=== PATIENT | male | born 1940 | race Caucasian/White ===

== ENCOUNTER → 2017-06-27 | Outpatient (CLI) | payer MEDICARE ==
[~2017-06-27] MED LIST: ASCO250CH PO; ASPI325 PO; ASPI81CH PO; CLOP75 PO; ESOM20 PO; FISH1000 PO; GLUC500 PO; HYDACE5 PO; LISHYD2012 PO; METF500 PO; METO100ER PO; MULVITMIND PO; PSYL5.85P PO; Percocet 5-3251 EACH PO; RXHYD5325 PO; SIMV10 PO; UBID10 PO; WARF2.5 PO
[2017-06-28 13:51] LABS: Stool Occult Bld Immuno 1 Negative (NEGATIVE); Stool Occult Bld Immuno 2 Negative (NEGATIVE)
== END | disposition home or self-care (01) ==
LOC: LAB 18:09 → LAB SHORT 18:09
PROVIDERS: Internal Medicine Gastroenterology
DX: K57.30 Diverticulosis of large intestine without perforation or abscess without bleeding (principal); Z86.010 Personal history of colon polyps
CPT/HCPCS: G0328

== ENCOUNTER 2017-07-03 11:33 | Day surgery (SDC) | payer MEDICARE ==
[~2017-07-03] VITALS: Ht 177.8 cm; Wt 81.8 kg
[2017-07-03] MEDS ORDERED: XARELTO20 MG (12:28)
== END 2017-07-03 15:30 | disposition home or self-care (01) ==
LOC: ORSCSDS 11:33
DX: K22.70 Barrett's esophagus without dysplasia (principal); Z86.010 Personal history of colon polyps; D12.0 Benign neoplasm of cecum; D12.3 Benign neoplasm of transverse colon; D12.4 Benign neoplasm of descending colon; D12.5 Benign neoplasm of sigmoid colon; K57.30 Diverticulosis of large intestine without perforation or abscess without bleeding; I48.91 Unspecified atrial fibrillation; Z87.891 Personal history of nicotine dependence; Z79.899 Other long term (current) drug therapy; Z79.82 Long term (current) use of aspirin
CPT/HCPCS: 88305; J1980; J3010; J7040; J7120

== ENCOUNTER 2018-04-01 04:48 | Emergency (ER) | payer MEDICARE ==
[~2018-04-01] VITALS: Ht 177.8 cm; Wt 83.9 kg
[~2018-04-01 04:48] MED LIST changes: +XARELTO20 MG
[2018-04-01] MEDS ORDERED: Roxicodone5 MG PO (05:54)
== END 2018-04-01 08:29 | disposition home or self-care (01) ==
LOC: ER 04:48
DX: S42.034A Nondisplaced fracture of lateral end of right clavicle, initial encounter for closed fracture (principal); I10 Essential (primary) hypertension; W18.30XA Fall on same level, unspecified, initial encounter; Z79.899 Other long term (current) drug therapy; Z79.82 Long term (current) use of aspirin; E11.9 Type 2 diabetes mellitus without complications; E78.00 Pure hypercholesterolemia, unspecified; I48.91 Unspecified atrial fibrillation
CPT/HCPCS: 72100; 73030; 99283-25

== ENCOUNTER 2018-10-05 12:04 | Emergency (ER) | payer MEDICARE ==
[~2018-10-05] VITALS: Ht 182.9 cm; Wt 74.8 kg
[~2018-10-05 12:04] MED LIST changes: +Roxicodone5 MG PO
[2018-10-05] MEDS ORDERED: PROLIA60 MG/1 ML SC (12:14)
[2018-10-05] MEDS ORDERED: WARF2.5 PO (12:14)
[2018-10-05] MEDS ORDERED: Aspirin EC81 MG PO (12:15)
[2018-10-05] MEDS ORDERED: LISI20 PO (12:15)
[2018-10-05] MEDS ORDERED: WARF1 PO (12:15)
[2018-10-05] MEDS ORDERED: TAMS.4ER PO (12:15)
[2018-10-05] MEDS ORDERED: OMEPRAZOLE20 MG PO (12:15)
[2018-10-05] MEDS ORDERED: Zocor20 MG PO (12:15)
[2018-10-05] MEDS ORDERED: [UNRECOGNIZED DRUG - OTHER] (12:16)
[2018-10-05] MEDS ORDERED: VITAMIN D31000 UNI2 PO (12:16)
[2018-10-05] MEDS ORDERED: LEUPROLIDE (12:16)
[2018-10-05] MEDS ORDERED: Metamucil0.52 GM PO (12:16)
[2018-10-05] MEDS ORDERED: UBID10 PO (12:17)
[2018-10-05] MEDS ORDERED: THERA1 EACH (12:17)
[2018-10-05] MEDS ORDERED: Glucosamine Ch1 EAC3 PO (12:17)
[2018-10-05] MEDS ORDERED: FISH OIL 1,001000 MG PO (12:17)
== END 2018-10-05 14:06 | disposition home or self-care (01) ==
LOC: ER 12:04
DX: S00.83XA Contusion of other part of head, initial encounter (principal); E11.9 Type 2 diabetes mellitus without complications; I10 Essential (primary) hypertension; I48.91 Unspecified atrial fibrillation; E78.00 Pure hypercholesterolemia, unspecified; Z79.82 Long term (current) use of aspirin; Z79.899 Other long term (current) drug therapy; W18.30XA Fall on same level, unspecified, initial encounter
CPT/HCPCS: 70450; 99284-25

== ENCOUNTER 2018-12-13 15:39 | Emergency (ER) | payer MEDICARE ==
[~2018-12-13] VITALS: Ht 177.8 cm; Wt 79.4 kg
[~2018-12-13 15:39] MED LIST changes: +Aspirin EC81 MG PO; +FISH OIL 1,001000 MG PO; +Glucosamine Ch1 EAC3 PO; +LEUPROLIDE; +LISI20 PO; +Metamucil0.52 GM PO; +OMEPRAZOLE20 MG PO; +PROLIA60 MG/1 ML SC; +TAMS.4ER PO; +THERA1 EACH; +VITAMIN D31000 UNI2 PO; +WARF1 PO; +Zocor20 MG PO; +[UNRECOGNIZED DRUG - OTHER]
[2018-12-13 16:50] LABS: International Normalized Ratio 2.37; Prothrombin Time Results 23.2 Sec (9.7-11.5)
== END 2018-12-13 17:30 | disposition home or self-care (01) ==
LOC: ER 15:39
PROVIDERS: Emergency Medicine
DX: S00.83XA Contusion of other part of head, initial encounter (principal); E11.9 Type 2 diabetes mellitus without complications; I10 Essential (primary) hypertension; I48.91 Unspecified atrial fibrillation; E78.00 Pure hypercholesterolemia, unspecified; Z88.1 Allergy status to other antibiotic agents; Z88.5 Allergy status to narcotic agent; Z88.8 Allergy status to other drugs, medicaments and biological substances; Z79.899 Other long term (current) drug therapy; Z79.01 Long term (current) use of anticoagulants; Z79.82 Long term (current) use of aspirin; W01.10XA Fall on same level from slipping, tripping and stumbling with subsequent striking against unspecified object, initial encounter
CPT/HCPCS: 70450; 72125; 85610; 99284-25

== ENCOUNTER 2018-12-14 03:26 | Emergency (ER) | payer MEDICARE ==
[~2018-12-14] VITALS: Ht 180.3 cm; Wt 79.4 kg
[2018-12-14 04:10] LABS: BASOPHILS ABSOLUTE AUTO 0.02 K/mm3 (0.00-0.23); BASOPHILS PERCENT AUTO 0 % (0-2); EOSINOPHILS ABSOLUTE AUTO 0.03 K/mm3 (0.00-0.68); EOSINOPHILS PERCENT AUTO 0 % (0-6); Hematocrit 29.7 % (37.0-53.0); Hemoglobin 9.6 g/dL (13.5-17.5); IMMATURE GRAN ABSOLUTE AUTO 0.04 K/mm3 (0.00-0.10); IMMATURE GRAN PERCENT AUTO 0 % (0-1); LYMPHOCYTES ABSOLUTE AUTO 0.63 K/mm3 (0.84-5.20); LYMPHOCYTES PERCENT AUTO 6 % (21-46); MONOCYTES ABSOLUTE AUTO 0.81 K/mm3 (0.16-1.47); MONOCYTES PERCENT AUTO 8 % (4-13); Mean Corpuscular HGB 29.6 pg (26.0-34.0); Mean Corpuscular HGB Conc 32.3 g/dL (31.5-36.5); Mean Corpuscular Volume 92 fL (80-100); Mean Platelet Volume 9.3 fL (9.1-12.4); NEUTROPHILS ABSOLUTE AUTO 8.99 K/mm3 (1.96-9.15); NEUTROPHILS PERCENT AUTO 85 % (41-73); Platelet Count 261 K/mm3 (150-400); RDW Coefficient Variation 12.9 % (11.7-14.2); RDW Standard Deviation 43.2 fL (35.1-46.3); Red Blood Cell Count 3.24 M/mm3 (4.30-5.90); White Blood Cell Count 10.52 K/mm3 (4.00-11.30)
[2018-12-14 04:23] LABS: Alanine Aminotransfer (ALT/SGP 101 U/L (12-78); Albumin, Blood 3.6 g/dL (3.4-5.0); Alk Phos 102 U/L (50-136); Anion Gap 8 mmol/L (6-16); Aspartate Aminotrans (AST/SGOT 180 U/L (12-37); Bilirubin, Total 1.2 mg/dL (0.1-1.0); Blood Urea Nitrogen 17 mg/dL (8-24); Bun/Creatinine Ratio 28.9 (12.0-20.0); CO2, Blood 25 mmol/L (21-32); Calcium, Blood 8.3 mg/dL (8.5-10.1); Chloride, Blood 97 mmol/L (98-108); Creatinine, Blood 0.59 mg/dL (0.60-1.20); Globulin, Blood 3.5 g/dL (2.2-4.0); Glomerular Filtration Rate >60 (60-); Glucose, Blood 174 mg/dL (70-99); Potassium, Blood 4.1 mmol/L (3.5-5.5); Sodium, Blood 130 mmol/L (136-145); Total Protein, Blood 7.1 g/dL (6.4-8.2)
[2018-12-14 04:24] LABS: International Normalized Ratio 1.88
[2018-12-14 04:27] LABS: Prothrombin Time Results 18.8 Sec (9.7-11.5)
== END 2018-12-14 07:55 | disposition short-term general hospital (02) ==
LOC: ER 03:26
PROVIDERS: Emergency Medicine
DX: S06.309A Unspecified focal traumatic brain injury with loss of consciousness of unspecified duration, initial encounter (principal); S36.113A Laceration of liver, unspecified degree, initial encounter; W18.30XA Fall on same level, unspecified, initial encounter; Z88.1 Allergy status to other antibiotic agents; Z88.5 Allergy status to narcotic agent; Z88.8 Allergy status to other drugs, medicaments and biological substances; Z79.899 Other long term (current) drug therapy; Z79.01 Long term (current) use of anticoagulants; Z79.82 Long term (current) use of aspirin; E11.9 Type 2 diabetes mellitus without complications; I48.91 Unspecified atrial fibrillation; E78.00 Pure hypercholesterolemia, unspecified
CPT/HCPCS: 36415; 70450; 71260; 72125; 74177; 80053; 85025; 85610; 93005; 93010; 96365-59; 96375-59; 96376-59; 99285-25; J1170; J3010; J3430; Q9967

== ENCOUNTER 2020-05-17 16:59 | Emergency (ER) | payer MEDICARE ==
[~2020-05-17] VITALS: Ht 182.9 cm; Wt 69.4 kg
[2020-05-17] MEDS ORDERED: Vitamin D2000 UNIT PO (18:18)
[2020-05-17] MEDS ORDERED: GLUCHON (18:19)
[2020-05-17] MEDS ORDERED: ZESTRIL40 M1 PO (18:19)
[2020-05-17] MEDS ORDERED: ZOCOR20 MG PO (18:19)
[2020-05-17] MEDS ORDERED: XARELTO20 MG PO (18:19)
[2020-05-17] MEDS ORDERED: CALCIUM 600 +1 EA11 (18:19)
[2020-05-17] MEDS ORDERED: OMEP20ER PO (18:20)
[2020-05-17] MEDS ORDERED: FISH OIL-VIT D1 EACH (18:20)
[2020-05-17] MEDS ORDERED: COENZYME Q-1050 MG PO (18:20)
[2020-05-17 18:53] LABS: BASOPHILS ABSOLUTE AUTO 0.04 K/mm3 (0.00-0.23); BASOPHILS PERCENT AUTO 0 % (0-2); EOSINOPHILS ABSOLUTE AUTO 0.03 K/mm3 (0.00-0.68); EOSINOPHILS PERCENT AUTO 0 % (0-6); Hematocrit 39.1 % (37.0-53.0); Hemoglobin 13.3 g/dL (13.5-17.5); IMMATURE GRAN ABSOLUTE AUTO 0.07 K/mm3 (0.00-0.10); IMMATURE GRAN PERCENT AUTO 1 % (0-1); LYMPHOCYTES ABSOLUTE AUTO 1.01 K/mm3 (0.84-5.20); LYMPHOCYTES PERCENT AUTO 8 % (21-46); MONOCYTES ABSOLUTE AUTO 1.01 K/mm3 (0.16-1.47); MONOCYTES PERCENT AUTO 8 % (4-13); Mean Corpuscular HGB 32.1 pg (26.0-34.0); Mean Corpuscular Volume 94 fL (80-100); NEUTROPHILS ABSOLUTE AUTO 10.71 K/mm3 (1.96-9.15); NEUTROPHILS PERCENT AUTO 83 % (41-73); Platelet Count 230 K/mm3 (150-400); RDW Coefficient Variation 12.4 % (11.7-14.2); RDW Standard Deviation 43.3 fL (35.1-46.3); Red Blood Cell Count 4.14 M/mm3 (4.30-5.90); White Blood Cell Count 12.87 K/mm3 (4.00-11.30)
[2020-05-17 19:10] LABS: International Normalized Ratio 1.02; Prothrombin Time Results 10.9 Sec (9.7-11.5)
[2020-05-17 19:14] LABS: Alanine Aminotransfer (ALT/SGP 24 U/L (12-78); Albumin, Blood 3.9 g/dL (3.4-5.0); Alk Phos 131 U/L (50-136); Anion Gap 8 mmol/L (6-16); Aspartate Aminotrans (AST/SGOT 30 U/L (12-37); Bilirubin, Total 1.2 mg/dL (0.1-1.0); Blood Urea Nitrogen 19 mg/dL (8-24); Bun/Creatinine Ratio 31.9 (12.0-20.0); CO2, Blood 26 mmol/L (21-32); Calcium, Blood 9.2 mg/dL (8.5-10.1); Chloride, Blood 98 mmol/L (98-108); Globulin, Blood 3.9 g/dL (2.2-4.0); Glomerular Filtration Rate >60 (60-); Glucose, Blood 108 mg/dL (70-99); Potassium, Blood 4.3 mmol/L (3.5-5.5); Sodium, Blood 132 mmol/L (136-145); Total Protein, Blood 7.8 g/dL (6.4-8.2)
== END 2020-05-17 20:09 | disposition short-term general hospital (02) ==
LOC: ER 16:59
PROVIDERS: Emergency Medicine
DX: S12.110A Anterior displaced Type II dens fracture, initial encounter for closed fracture (principal); S12.000A Unspecified displaced fracture of first cervical vertebra, initial encounter for closed fracture; S22.010A Wedge compression fracture of first thoracic vertebra, initial encounter for closed fracture; S09.90XA Unspecified injury of head, initial encounter; E11.9 Type 2 diabetes mellitus without complications; I48.91 Unspecified atrial fibrillation; Z79.899 Other long term (current) drug therapy; W01.10XA Fall on same level from slipping, tripping and stumbling with subsequent striking against unspecified object, initial encounter; Y92.002 Bathroom of unspecified non-institutional (private) residence as the place of occurrence of the external cause; Z88.1 Allergy status to other antibiotic agents; Z88.5 Allergy status to narcotic agent; Z88.8 Allergy status to other drugs, medicaments and biological substances; Z79.82 Long term (current) use of aspirin
CPT/HCPCS: 36415; 70450; 72125; 80053; 85025; 85610; 85730; 96374; 99284-25; A9270; J3010; L0160

== ENCOUNTER 2021-05-06 09:34 | Inpatient (IN) | payer MEDICARE ==
[~2021-05-06] VITALS: Ht 180.3 cm; Wt 86.3 kg
[~2021-05-06 09:34] MED LIST changes: +CALCIUM 600 +1 EA11; +COENZYME Q-1030 MG PO; +FISH OIL-VIT D1 EACH; +GLUCHON; +OMEP20ER PO; +Vitamin D2000 UNIT PO; +XARELTO20 MG PO; +ZESTRIL40 M1 PO; +ZOCOR20 MG PO
[2021-05-06] MEDS ORDERED: PLAVIX75 MG PO (10:30)
[2021-05-06] MEDS ORDERED: LIPITOR80 MG PO (10:30)
[2021-05-06] MEDS ORDERED: Hair, Skin & N1 EACH PO (10:35)
[2021-05-06] MEDS ORDERED: METAMUCIL POWD798 GM PO (10:35)
--- NOTE | 2021-05-06 16:19 | NUR ---
PT VERBALIZED UNDERSTANDING OF D/C INSTRUCTIONS, PAPERWORK PROVIDED IN FOLDER. RIGHT GROIN SITE REMAINS SOFT WITH NO BLEEDING OR OOZING. DRESSING REMAINS C/D/I. RIGHT WRIST PUNCTURE WOUNDS OPEN TO AIR, NO BLEEDING. PT IV REMOVED FROM LAC WITH CATH INTACT, PRESSURE DRESSING APPLIED. DENIES CP OR SOB. S/O ARRIVES TO DRIVE PT HOME. ALL PERSONAL BELONGINGS SENT WITH PATIENT. ENCOURAGED TO FOLLOW UP WITH PROVIDER SCHEDULED. NO ACUTE DISTRESS NOTED AT TIME OF DISPO.
[2021-05-06 16:26] LABS: Source, Urine Foley catheter
[2021-05-06 16:28] LABS: Bilirubin, Urine Neg (Neg); Blood, Urine 1+ (Neg); Glucose Qualitative, Urine Neg (Neg); Ketones, Urine Neg (Neg); Leukocyte Esterase, Urine Neg (Neg); Nitrite, Urine Neg (Neg); Protein, Urine Neg (Neg); Urobilinogen, Urine NORM (Normal); pH, Urine 6.5 (5.0-8.0)
[2021-05-06 16:37] LABS: Appearance, Urine Clear (Clear); Color, Urine Pale Yellow (P-Yellow)
[2021-05-06 16:38] LABS: Bacteria Rare /hpf; Squamous Epithelial Cells Rare /hpf (Few); White Blood Cells, Urine 0-2 /hpf (0-5)
[2021-05-06 19:23] LABS: Hematocrit 21.5 % (37.0-53.0); Hemoglobin 6.8 g/dL (13.5-17.5)
[2021-05-06 20:52] LABS: Hematocrit 34.3 % (37.0-53.0); Hemoglobin 10.6 g/dL (13.5-17.5)
[2021-05-06 22:18] LABS: Hematocrit 33.8 % (37.0-53.0); Hemoglobin 10.6 g/dL (13.5-17.5)
[2021-05-07 03:12] LABS: BASOPHILS ABSOLUTE AUTO 0.03 K/mm3 (0.00-0.23); BASOPHILS PERCENT AUTO 0 % (0-2); EOSINOPHILS PERCENT AUTO 0 % (0-6); Hematocrit 30.8 % (37.0-53.0); Hemoglobin 9.7 g/dL (13.5-17.5); IMMATURE GRAN ABSOLUTE AUTO 0.06 K/mm3 (0.00-0.10); IMMATURE GRAN PERCENT AUTO 0 % (0-1); LYMPHOCYTES ABSOLUTE AUTO 0.42 K/mm3 (0.84-5.20); LYMPHOCYTES PERCENT AUTO 2 % (21-46); MONOCYTES PERCENT AUTO 3 % (4-13); Mean Corpuscular HGB 30.7 pg (26.0-34.0); Mean Corpuscular HGB Conc 31.5 g/dL (31.5-36.5); Mean Corpuscular Volume 98 fL (80-100); Mean Platelet Volume 10.2 fL (9.1-12.4); NEUTROPHILS ABSOLUTE AUTO 17.36 K/mm3 (1.96-9.15); NEUTROPHILS PERCENT AUTO 94 % (41-73); Platelet Count 164 K/mm3 (150-400); RDW Coefficient Variation 15.9 % (11.7-14.2); RDW Standard Deviation 57.3 fL (35.1-46.3); Red Blood Cell Count 3.16 M/mm3 (4.30-5.90); White Blood Cell Count 18.47 K/mm3 (4.00-11.30)
[2021-05-07 03:44] LABS: Anion Gap 6 mmol/L (6-16); Blood Urea Nitrogen 17 mg/dL (8-24); Bun/Creatinine Ratio 26.6 (12.0-20.0); CO2, Blood 21 mmol/L (21-32); Calcium, Blood 7.6 mg/dL (8.5-10.1); Chloride, Blood 114 mmol/L (98-108); Creatinine, Blood 0.64 mg/dL (0.60-1.20); Glomerular Filtration Rate >60 (60-); Glucose, Blood 160 mg/dL (70-99); Phosphorus, Blood 4.5 mg/dL (2.5-4.9); Potassium, Blood 4.4 mmol/L (3.5-5.5); Sodium, Blood 141 mmol/L (136-145)
--- NOTE | 2021-05-07 09:00 | NUR ---
AT ASSUMPTION OF CARE PT IS A&OX4. DENIES PAIN. ROOM AIR. R AND LEFT GROIN INSERTION SITES ARE SOFT, FLAT, DRY. L GROIN SITE IS ECCYMOTIC. R PEDAL AND PT PULSES ARE FOUND VIA DOPPLER. L PEDAL AND PT PULSES ARE ABSENT, MD AWARE. L FOOT WARM WITH TOES PALE. A FIB WITH RATE 60-100S. GOMEZ WITH CLEAR MARIANNE URINE. HEPARIN RUNNING AT 15 U/KG/HR
[2021-05-07 09:51] LABS: Hematocrit 31.5 % (37.0-53.0); Hemoglobin 10.1 g/dL (13.5-17.5)
--- NOTE | 2021-05-07 13:34 | NUR ---
HEPARIN PAUSED FOR 1 HOUR PER ORDER, RESTARTED AT 12 U/KG/HR PER ORDER
--- NOTE | 2021-05-07 17:39 | NUR ---
SHIFT SUMMARY REMAINS A&0X4. PLEASANT AND COOPERATIVE. ROOM AIR. LEFT FOOT W/ NUMBNESS BUT MOVEMENT PRESENT, TOES PALE. INTERMITTENTLY WARM AND COOL. ABSENT L PEDAL AND PT PULSE. RIGHT FOOT WARM WITH PT AND PEDAL PULSE FOUND BY DOPPLER. PATRICIA REMOVED THIS AFTERNOON. A FIB W/ CONTROLLED RATE, SEE VITALS. HEPARIN RUNNING AT 12 U/KG/HR
--- NOTE | 2021-05-07 19:05 | NUR ---
Assumed care. Report received from shobha HARRIS. Pt resting in bed at this time, on RA. Alert and oriented, call light within reach. IV access in R/ac and R/forearm. Heparin running at 12 units/kg/hr. VS stable, no acute needs at this time. Will continue to monitor.
[2021-05-07 19:38] LABS: Hemoglobin 7.5 g/dL (13.5-17.5)
--- NOTE | 2021-05-07 21:35 | NUR ---
PT TRANSFERRED TO MEDICAL FLOOR. HEPARIN ON STANDBY DURING TIME OF TRANSFER, PHARMACY MANAGING INFUSION. VS STABLE, REPORT GIVEN TO MEDICAL FLOOR RN. SEE SHIFT ASSESSMENT FOR FURTHER DETAILS.
--- NOTE | 2021-05-07 23:48 | NUR ---
RECIEVED CALL FROM [facility]; PATIENT HAD 13 BEAT RUN OF VTACH. TALKED TO CANDACE RAMESH RN. STATED IF PATIENT IS ASYMMPTOMATIC THAN TO NOTIFY MD WHEN ANOTHER RN NEEDS TO CALL HOSPITALIST.
[2021-05-08 03:43] LABS: Hematocrit 20.9 % (37.0-53.0); Hemoglobin 6.7 g/dL (13.5-17.5)
--- NOTE | 2021-05-08 04:41 | NUR ---
SHIFT SUMMARY- PATIENT ARRIVED TO MEDICAL FLOOR, ROOM 333, AT 2102 LAST NIGHT. WEAK AND IN PAIN S/P L ILLIAC RUPTURE AND REPAIR R/T LLE ISCHEMIA. PATIENT NOTED TO BEING EXTREMELY PALE. VITALS STABLE HOWEVER HEMOGLOBIN DROPPED FROM 7.5 TO 6.[address] ARVIZU VIA TELEPHONE AT 0440 AND NEW ORDERS GIVEN TO ADMINISTER I UNIT PRBCs. WILL ADMINISTER ONCE BLOOD RECIEVED FROM BB.
--- NOTE | 2021-05-08 06:22 | NUR ---
UNIT OF BLOOD STARTED TO TRANSFUSE. WILL MONITOR PATIENT PER PROTOCOL.
[2021-05-08 10:30] LABS: Hematocrit 23.7 % (37.0-53.0); Hemoglobin 7.6 g/dL (13.5-17.5)
--- NOTE | 2021-05-08 11:07 | NUR ---
HEPARIN DRIP TO REMAIN SAME PER PHA
--- NOTE | 2021-05-08 13:18 | NUR ---
DR LOERA IN AND STOPPED HEPARIN
--- NOTE | 2021-05-08 15:13 | NUR ---
DR LOERA IN TO SEE PT. 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 WILL NEED FURTHER MONITORING. EXPECT TX TO PCU OR LIKELY ICU FOR Q4-6 H/H AND BLOOD DID VISUALIZE FEET AND OKAY WITH REVASCULARIZATION PLAN SET FOR THURS. PT IS A/O, PLEASANT AND C/O UNCOMFORTABLNESS IN ABD, GASSY AND NEEDS TO PASS BM. BOWEL CARE STARTED TODAY. NOTIFYING DENTAL LABORATORY TECHNICIAN
--- NOTE | 2021-05-08 16:08 | NUR ---
CALLED REPORT TO [facility] ICU. PER DR LOERA PT TO TRANSFER. MOVED PT TO ICU RM 5 AT [id number]
[2021-05-08 16:22] LABS: Hematocrit 21.6 % (37.0-53.0)
[2021-05-08 16:37] LABS: Bun/Creatinine Ratio 15.4 (12.0-20.0); Calcium, Blood 7.8 mg/dL (8.5-10.1); Creatinine, Blood 2.28 mg/dL (0.60-1.20); Magnesium, Blood 2.1 mg/dL (1.6-2.4); Potassium, Blood 4.7 mmol/L (3.5-5.5)
[2021-05-08 19:04] LABS: Hematocrit 21.9 % (37.0-53.0); Hemoglobin 7.2 g/dL (13.5-17.5)
--- NOTE | 2021-05-08 19:20 | NUR ---
PT ARRIVED TO ICU AROUND 1540. A&OX4. ROOM AIR. A FIB 100S. LLE WITH ABSENT DT AND PT PULSES. FOOT COOL AND TOES PALE. RLE DT AND PT PULSES FOUND BY DOPPLER. PT STATES HE HAS NOT URINATED SINCE THIS RN REMOVED HIS GOMEZ YESTERDAY. BLADDER SCANNED FOR 183. NOTIFIED, FLUIDS AND GOMEZ FOR STRICT I&O ORDERED. BELLY IS DISTENDED, FIRM. TENDER NEAR LOCATION OF BLEED. COMPLAINS OF HEARTBURN, TREATED WITH TUMS PER EMAR.
--- NOTE | 2021-05-08 19:24 | NUR ---
ASSUMED CARE. REPORT RECEIVED FROM JERAD RN. PT RESTING IN BED, ON ROOM AIR. NS RUNNING AT 50 ML/HR. PT ALERT AND ORIENTED, CALL LIGHT WITHIN REACH. VS STABLE, WILL CONTINUE TO MONITOR.
[2021-05-08 22:23] LABS: Hemoglobin 6.7 g/dL (13.5-17.5)
[2021-05-09 02:57] LABS: BASOPHILS ABSOLUTE AUTO 0.03 K/mm3 (0.00-0.23); BASOPHILS PERCENT AUTO 0 % (0-2); EOSINOPHILS PERCENT AUTO 0 % (0-6); Hematocrit 25.5 % (37.0-53.0); Hemoglobin 8.4 g/dL (13.5-17.5); IMMATURE GRAN ABSOLUTE AUTO 0.18 K/mm3 (0.00-0.10); IMMATURE GRAN PERCENT AUTO 1 % (0-1); LYMPHOCYTES ABSOLUTE AUTO 1.23 K/mm3 (0.84-5.20); LYMPHOCYTES PERCENT AUTO 5 % (21-46); MONOCYTES ABSOLUTE AUTO 1.91 K/mm3 (0.16-1.47); MONOCYTES PERCENT AUTO 8 % (4-13); Mean Corpuscular HGB 31.1 pg (26.0-34.0); Mean Corpuscular HGB Conc 32.9 g/dL (31.5-36.5); Mean Corpuscular Volume 94 fL (80-100); Mean Platelet Volume 10.7 fL (9.1-12.4); NEUTROPHILS ABSOLUTE AUTO 19.96 K/mm3 (1.96-9.15); NEUTROPHILS PERCENT AUTO 86 % (41-73); NRBC ABSOLUTE 0.02 K/mm3 (0.00-0.02); NRBC Auto 0.1 /100 WBC (0.0-0.2); Platelet Count 135 K/mm3 (150-400); RDW Coefficient Variation 16.3 % (11.7-14.2); RDW Standard Deviation 55.9 fL (35.1-46.3); White Blood Cell Count 23.31 K/mm3 (4.00-11.30)
[2021-05-09 03:14] LABS: Albumin, Blood 3.1 g/dL (3.4-5.0); Albumin/Globulin Ratio 1.1 (0.8-1.8); Bilirubin, Total 1.2 mg/dL (0.1-1.0); Bun/Creatinine Ratio 15.7 (12.0-20.0); Calcium, Blood 8.1 mg/dL (8.5-10.1); Creatinine, Blood 2.81 mg/dL (0.60-1.20); Globulin, Blood 2.7 g/dL (2.2-4.0); Potassium, Blood 5.2 mmol/L (3.5-5.5); Total Protein, Blood 5.8 g/dL (6.4-8.2)
--- NOTE | 2021-05-09 06:25 | NUR ---
SHIFT SUMMARY. PT RESTED IN BED AND UP TO CHAIR DURING SHIFT. ON 02 VIA NC AT 2 L/MIN. IV PUMP RUNNING NS AT 50 ML/HR. PT HAD ONE UNIT PRBCS TRANSFUSED DURING SHIFT. PT ALERT, CONFUSED AT TIMES ABOUT SURROUNDINGS/EVENTS. SEE SHIFT ASSESSMENT FOR FURTHER DETAILS. WILL CONTINUE TO MONITOR AND REPORT OFF TO DAYSHIFT RN.
[2021-05-09 09:50] LABS: Source, Urine Foley catheter
[2021-05-09 09:54] LABS: Blood, Urine 5+ (Neg); Glucose Qualitative, Urine Neg (Neg); Ketones, Urine Neg (Neg); Leukocyte Esterase, Urine 2+ (Neg); Nitrite, Urine Neg (Neg); Protein, Urine 3+ (Neg); Urobilinogen, Urine NORM (Normal)
[2021-05-09 10:03] LABS: Bilirubin, Urine 1+ (Neg)
[2021-05-09 10:04] LABS: Appearance, Urine Cloudy (Clear); Color, Urine Yellow (P-Yellow)
[2021-05-09 10:09] LABS: Squamous Epithelial Cells Few /hpf (Few)
[2021-05-09 10:10] LABS: Bacteria Mod /hpf
[2021-05-09 10:12] LABS: Hematocrit 25.1 % (37.0-53.0); Hemoglobin 8.2 g/dL (13.5-17.5)
--- NOTE | 2021-05-09 14:27 | NUR ---
PT BEGINNING TO SHOW SIGNS OF DELERIUM. STILL KNOWS YEAR AND THAT HE IS AT THE HOSPITAL, BUT HAS BEEN HEARD CALLING FOR NAMES OF FAMILY MEMBERS WHILE IN HIS ROOM BY HIMSELF. WHEN REDIRECTED AND EXPLAINED CIRCUMSTANCES, HE APPEARS TO UNDERSTAND.
[2021-05-09 17:01] LABS: Hematocrit 24.6 % (37.0-53.0); Hemoglobin 8.2 g/dL (13.5-17.5)
[2021-05-09 17:23] LABS: Bun/Creatinine Ratio 16.3 (12.0-20.0); Calcium, Blood 8.3 mg/dL (8.5-10.1); Creatinine, Blood 3.43 mg/dL (0.60-1.20)
--- NOTE | 2021-05-09 19:15 | NUR ---
Assumed care. Report received from shobha RN. Pt resting in bed at this time. On room air, stable VS. Pt alert, call light within reach. Bicarb running at 75 ml/hr. IV access sites WNL. Will continue to monitor.
--- NOTE | 2021-05-09 19:15 | NUR ---
PT REMAINS ORIENTEDX4, BUT HAS SHOWN SIGNS OF HALLUCINATION, MENTIONING SOMEONE KNOCKING ON DOOR AND SEEING SOMEONE HE KNEW IN HIS ROOM. REPORTS DISCOMFORT IN HIS ABDOMINAL AREA RELATED TO NO BM FOR THE PAST FEW DAYS. REFUSES SUPPOSITORY AFTER ENCOURAGEMENT. SENNA GIVEN. ABDOMEN IS DISTENDED AND FIRM. SAT IN CHAIR FOR MOST OF THE DAY. ON ROOM AIR. TACHYPNEA WITH EXERTION. BLOOD SUGAR WAS 69 THIS MORNING. FOOD AND JUICE GIVEN. NO CHANGES TO LOWER EXTREMITIES THIS SHIFT. SEE ASSESSMENT FOR DETIALS. REMAINS IN A FIB RATE 80S-100S. URINE OUTPUT 5-10ML/HR THIS SHIFT. MD NOTIFIED, NEPHROLOGY CONSULT ORDERED. CUT OUT STITCHER WAS CALLED BY THIS RN.
--- NOTE | 2021-05-09 22:10 | NUR ---
PHYSICIAN CONTACT. PT HAS CRACKLES IN ALL LUNG MAOSN, ACUTE CHANGE FROM BEGINNING OF SHIFT. CALLED DR. MUNGUIA TO REPORT, ORDERS OBTAINED TO HOLD BICARB DRIP, GET STAT RENAL PANEL AND GIVE 40 MG IV LASIX.
[2021-05-09 22:51] LABS: Albumin, Blood 2.8 g/dL (3.4-5.0); Anion Gap 16 mmol/L (6-16); Blood Urea Nitrogen 66 mg/dL (8-24); Bun/Creatinine Ratio 18.6 (12.0-20.0); CO2, Blood 16 mmol/L (21-32); Calcium, Blood 8.2 mg/dL (8.5-10.1); Chloride, Blood 102 mmol/L (98-108); Creatinine, Blood 3.54 mg/dL (0.60-1.20); Glomerular Filtration Rate 17 (60-); Glucose, Blood 82 mg/dL (70-99); Phosphorus, Blood 7.4 mg/dL (2.5-4.9); Potassium, Blood 5.2 mmol/L (3.5-5.5); Sodium, Blood 134 mmol/L (136-145)
--- NOTE | 2021-05-10 00:41 | NUR ---
CONFUSION PT VERY CONFUSED. REFUSING CARE. STATES,"IM GOING TO CALL THE POLICE. JUST LEAVE ME ALONE. I WANT TO ". PT MED WITH BUMEX, SOLUMEDROL BUT PT REFUSING TO TAKE ZAROXOLYN. CALL TO SON OBIE LA-MESSAGE LEFT FOR HIM TO CALL. CALL TO EDMUND (GIRLFRIENDS DAUGHTER) UPDATE GIVEN. EDMUND WILL CONT TO TRY AND REACH PT SON OBIE AND DAUGHTER SENG. UPDATED PT RN
[2021-05-10 01:54] LABS: PCO2 Arterial 38.8 mmHg (35-45); pH Blood Arterial 7.05 (7.35-7.45)
[2021-05-10 01:55] LABS: PO2 Arterial 267 mmHg (80-100)
--- NOTE | 2021-05-10 02:15 | NUR ---
CALL TO DR ARVIZU DUE TO PT UNRESPONSIVE TO STERNAL RUB OR DEEP ORAL SUCTION. NO GAG REFLEX. RT AT BEDSIDE. NASAL SUCTION SPUTUM, BROWN LIQUID. PLACED PT ON BIPAP 16/10 RATE 12 FIO2 100%. RT OBTAINING ABG. PT MED WITH NARCAN [address] ARVIZU. PT STARTING TO REACH FOR BIPAP MASK AFTER A FEW MIN. PLACED IN BILAT SOFT WRIST RESTRAINTS. ABG REPORTED TO DR ARVIZU AND DR MUNGUIA. PT RECEIVED 1 AMP BICARB.
[2021-05-10 03:05] LABS: Hematocrit 23.7 % (37.0-53.0); Hemoglobin 7.4 g/dL (13.5-17.5); Mean Corpuscular HGB 31.5 pg (26.0-34.0); Mean Corpuscular HGB Conc 31.2 g/dL (31.5-36.5); Mean Platelet Volume 10.9 fL (9.1-12.4); NRBC ABSOLUTE 0.22 K/mm3 (0.00-0.02); NRBC Auto 1.7 /100 WBC (0.0-0.2); Platelet Count 98 K/mm3 (150-400); RDW Coefficient Variation 16.8 % (11.7-14.2); RDW Standard Deviation 59.8 fL (35.1-46.3); Red Blood Cell Count 2.35 M/mm3 (4.30-5.90); White Blood Cell Count 13.15 K/mm3 (4.00-11.30)
[2021-05-10 03:35] LABS: Albumin, Blood 2.6 g/dL (3.4-5.0); Bilirubin, Direct 0.6 mg/dL (0.0-0.3); Bilirubin, Indirect 0.7 mg/dL (0.1-0.7); Bilirubin, Total 1.3 mg/dL (0.1-1.0); Bun/Creatinine Ratio 17.9 (12.0-20.0); Calcium, Blood 8.6 mg/dL (8.5-10.1); Creatinine, Blood 3.85 mg/dL (0.60-1.20); Globulin, Blood 2.6 g/dL (2.2-4.0); Total Protein, Blood 5.2 g/dL (6.4-8.2); Uric Acid, Blood 10.1 mg/dL (3.5-7.2)
--- NOTE | 2021-05-10 03:40 | NUR ---
CODE STATUS SON OBIE LA CALLED BACK. EXPLAINED THAT PT HAD BEEN PUT ON LIFE SUPPORT AND STARTED ON MEDICATIONS TO ELEVATE BP. SON STATED,"HE WOULD NOT WANT ANY OF THIS". PT CHANGED TO DNR. OBIE WILL BE TALKING WITH SISTERS, POSSIBLE WITHDRAW OF CARE.
[2021-05-10 03:45] LABS: Mean Corpuscular Volume 101 fL (80-100)
[2021-05-10 03:47] LABS: Phosphorus, Blood 10.3 mg/dL (2.5-4.9); Potassium, Blood 6.7 mmol/L (3.5-5.5)
[2021-05-10 03:49] LABS: BAND PERCENT MAN 40 % (0-8); BASOPHILS PERCENT MAN 0 % (0-2); EOSINOPHILS ABSOLUTE MAN 0.13 K/mm3 (0.00-0.68); EOSINOPHILS PERCENT MAN 1 % (0-6); LYMPHOCYTES ABSOLUTE MAN 0.39 K/mm3 (0.84-5.20); LYMPHOCYTES PERCENT MAN 3 % (21-46); METAMYELOCYTE ABSOLUTE MAN 0.13 K/mm3 (0.00-0.00); METAMYELOCYTE PERCENT MAN 1 % (0-0); MONOCYTES ABSOLUTE MAN 0.65 K/mm3 (0.16-1.47); MONOCYTES PERCENT MAN 5 % (4-13); MYELOCYTE ABSOLUTE MAN 0.13 K/mm3 (0.00-0.00); MYELOCYTE PERCENT MAN 1 % (0-0); SEG NEUTROPHILS PERCENT MAN 49 % (41-73); TOTAL CELLS COUNTED 100
[2021-05-10 03:52] LABS: Magnesium, Blood 4.2 mg/dL (1.6-2.4)
--- NOTE | 2021-05-10 04:06 | NUR ---
INTUBATION PT BECAME UNRESPONSIVE; BIPAP WAS IN PLACE AND PT WAS STILL VENTILATING AT A RATE OF 26 AND TIDAL VOLUMES >400. DR. ARVIZU AT BEDSIDE. PT HYPOTENSIVE. ORDERS TO ADMINISTER PHENYLEPHRINE 1MG AND ORDERS FOR LEVOPHED. PHENYLEPHRINE GIVEN AT 0313; BP INCREASED TO SYSTOLIC 90'S. LEVOPHED STARTED AT 30MCG/MIN AT 0320. UNABLE TO GET BP UP BEFORE ADMINISTERING RSI MEDICATIONS; THEREFORE, THE DECISION WAS MADE TO INTUBATE WITHOUT MEDICATING D/T NO GAG REFLEX. PT INTUBATED AT 0326; 8.0 ETT 26CM AT THE TEETH; POSITIVE COLOR CHANGE, BILATERAL AND EQUAL BREATH SOUNDS. OG TUBE PLACED AT 0328. ORDERS PLACED FOR XRAY TO CONFIRM TUBE PLACEMENT. FAMILY NOTIFIED BY DR. ARVIZU REGARDING PT'S CONDITION. FAMILY DECIDED TO GO COMFORT CARE AND EXTUBATE. VASOPRESSOR MEDICATIONS TURNED OFF AT THIS TIME. LEFT PROPOFOL INFUSING FOR COMFORT.
--- NOTE | 2021-05-10 04:38 | NUR ---
COMFORT CARE PT EXTUBATED AT 0420. TIME OF CALLED AT 0432.
--- NOTE | 2021-05-10 05:30 | NUR ---
PT EXTUBATED TO COMFORT AT 0420 ETT SX AND DEEP ORAL SX, DEEP ORAL SX FOR COPIOUS DARK GASTRIC CONTENTS. EXTUBATED WITHOUT ISSUE.
--- NOTE | 2021-05-10 06:11 | NUR ---
SUMMARY OF EVENTS. PT INCREASINGLY CONFUSED THROUGHOUT SHIFT. DR MUNGUIA CONTACTED FOR CONDITION CHANGE PRIOR TO MIDNIGHT (SEE PREVIOUS NOTE). AFTER MIDNIGHT PT BECAME RESPONSIVE ONLY TO PAINFUL STIMULI, RT AND DR. ARVIZU CALLED TO BEDSIDE FOR EVALUATION. PT PUT ON BIPAP FOR RESPIRATORY SUPPORT AND CONTINUED TO MONITOR. SEE ELBERT RN NOTE FOR INTUBATION AND SUBSEQUENT EVENTS.
== END 2021-05-10 04:32 | DRG 252 ==
LOC: ICUE 09:34 → MHTC 09:34 → ICUE 14:18 → MEDS 05-07 11:37 → MHTC 05-07 11:37 → ICUE 05-07 11:37 → MEDS 05-07 21:18 → ICUE 05-08 15:45
PROVIDERS: Family Medicine; Internal Medicine; Internal Medicine Critical Care Medicine; Internal Medicine Nephrology; Nurse Practitioner Acute Care; ADMIT Internal Medicine
PROC: 04FC3ZZ Fragmentation of Right Common Iliac Artery, Percutaneous Approach (ICD-10-PCS; principal; 2021-05-06)
PROC: 04FH3ZZ Fragmentation of Right External Iliac Artery, Percutaneous Approach (ICD-10-PCS; 2021-05-06)
PROC: 047D34Z Dilation of Left Common Iliac Artery with Drug-eluting Intraluminal Device, Percutaneous Approach (ICD-10-PCS; 2021-05-06)
PROC: 047 Lower Arteries, Dilation (ICD-10-PCS; 2021-05-06)
PROC: 047K35Z Dilation of Right Femoral Artery with Two Drug-eluting Intraluminal Devices, Percutaneous Approach (ICD-10-PCS; 2021-05-06)
PROC: B41DYZZ Fluoroscopy of Aorta and Bilateral Lower Extremity Arteries using Other Contrast (ICD-10-PCS; 2021-05-06)
PROC: 04UD3JZ Supplement Left Common Iliac Artery with Synthetic Substitute, Percutaneous Approach (ICD-10-PCS; 2021-05-06)
PROC: 04UJ3JZ Supplement Left External Iliac Artery with Synthetic Substitute, Percutaneous Approach (ICD-10-PCS; 2021-05-06)
PROC: 30233N1 Transfusion of Nonautologous Red Blood Cells into Peripheral Vein, Percutaneous Approach (ICD-10-PCS; 2021-05-08)
PROC: 0BH17EZ Insertion of Endotracheal Airway into Trachea, Via Natural or Artificial Opening (ICD-10-PCS; 2021-05-09)
PROC: 5A1935Z Respiratory Ventilation, Less than 24 Consecutive Hours (ICD-10-PCS; 2021-05-09)
PROC: 3E033XZ Introduction of Vasopressor into Peripheral Vein, Percutaneous Approach (ICD-10-PCS; 2021-05-10)
DX: E11.51 Type 2 diabetes mellitus with diabetic peripheral angiopathy without gangrene (principal); N17.0 Acute kidney failure with tubular necrosis; I47.2 Ventricular tachycardia; J90 Pleural effusion, not elsewhere classified; R44.3 Hallucinations, unspecified; I97.51 Accidental puncture and laceration of a circulatory system organ or structure during a circulatory system procedure; E87.2 Acidosis; I74.5 Embolism and thrombosis of iliac artery; I70.222 Atherosclerosis of native arteries of extremities with rest pain, left leg; S30.0XXA Contusion of lower back and pelvis, initial encounter; Z51.5 Encounter for palliative care; Z79.4 Long term (current) use of insulin; I10 Essential (primary) hypertension; I95.9 Hypotension, unspecified; G20 Parkinson's disease; E78.5 Hyperlipidemia, unspecified; D64.9 Anemia, unspecified; I48.0 Paroxysmal atrial fibrillation; Z79.01 Long term (current) use of anticoagulants; K21.00 Gastro-esophageal reflux disease with esophagitis, without bleeding; D72.829 Elevated white blood cell count, unspecified; R41.0 Disorientation, unspecified; Z87.891 Personal history of nicotine dependence; Z88.5 Allergy status to narcotic agent; Z88.1 Allergy status to other antibiotic agents; Z88.8 Allergy status to other drugs, medicaments and biological substances; M19.90 Unspecified osteoarthritis, unspecified site; Z98.890 Other specified postprocedural states; Z79.899 Other long term (current) drug therapy; K21.9 Gastro-esophageal reflux disease without esophagitis; Z85.46 Personal history of malignant neoplasm of prostate; R34 Anuria and oliguria
CPT/HCPCS: 31500; 36415; 36430; 36600; 37221; 37223; 37252; 37253; 51702; 74174; 75635; 75716; 76937; 78452; 80048; 80053; 80069; 81001; 82248; 82550; 82803; 82947; 83036; 83735; 84100; 84550; 85007; 85014; 85018; 85025; 85027; 85347; 85520; 85610; 86850; 86900; 86901; 86923; 87070; 87086; 87205; 93017; 93306; 94002; 94003; 97163; A9270; A9500; C1725; C1753; C1760; C1769; C1773; C1874; C1887; C1894; C9765; J0171; J0706; J0881; J1100; J1644; J1815; J1940; J2250; J2270; J2310; J2370; J2405; J2704; J2785; J2930; J3010; J7030; J7040; J7050; J7060; J7070; P9016; P9046; Q9967